=== PATIENT | female | born 1990 | race Caucasian/White ===

== ENCOUNTER 2020-07-15 14:31 | Emergency (ER) | payer MEDICAID ==
[~2020-07-15] VITALS: Ht 154.9 cm; Wt 55.0 kg
[2020-07-15 14:40] VITALS: BP 114/60
== END 2020-07-15 15:32 | disposition home or self-care (01) ==
LOC: ED 15:25
DX: L03.115 Cellulitis of right lower limb (principal); F17.210 Nicotine dependence, cigarettes, uncomplicated
CPT/HCPCS: 99283; 99406

== ENCOUNTER 2021-05-28 08:28 | Emergency (ER) | payer MEDICAID ==
[~2021-05-28] VITALS: Ht 152.4 cm; Wt 52.2 kg
--- NOTE | 2021-05-28 08:55 | NUR ---
pt in with C/O of left foot pain after kicking a wall around 2200 on 05/27/2021. pt states shes been icing her foot at home but is concerned it is broken. pt changed into hospital gown and connected to monitors.
[2021-05-28] MEDS ORDERED: birth control PO (08:57)
--- NOTE | 2021-05-28 09:05 | NUR ---
xray at bedside.
[2021-05-28] MEDS ORDERED: ACETAMINOPHEN 500 MG TABLET PO ONE (09:30)
[2021-05-28] MEDS ORDERED: KETOROLAC 30 MG/1 ML IM ONE (09:30)
[2021-05-28] MEDS ORDERED: KETOROLAC 30 MG/1 ML ONE (09:32)
[2021-05-28] MEDS ORDERED: ACETAMINOPHEN 500 MG TABLET ONE (09:32)
--- NOTE | 2021-05-28 09:40 | NUR ---
medicated per eMAR
[2021-05-28 10:18] VITALS: BP 133/68
--- NOTE | 2021-05-28 11:01 | NUR ---
Patient/Caregiver given discharge instructions and they have confirmed that they understand the instructions. NAD, all questions answered appropriately, denies additional needs at this time. No personal belongings left in room after discharge.
== END 2021-05-28 11:02 | disposition home or self-care (01) ==
LOC: ED 08:56
DX: S90.02XA Contusion of left ankle, initial encounter (principal); S90.32XA Contusion of left foot, initial encounter; Z90.721 Acquired absence of ovaries, unilateral; W22.8XXA Striking against or struck by other objects, initial encounter; Y93.89 Activity, other specified; Y92.009 Unspecified place in unspecified non-institutional (private) residence as the place of occurrence of the external cause; Y99.8 Other external cause status
CPT/HCPCS: 73610; 73630; 96372; 99284; J1885